=== PATIENT | male | born 1965 | race Caucasian/White ===

== ENCOUNTER 2021-01-26 07:59 | Emergency (ER) | payer SELFPAY ==
[~2021-01-26] VITALS: Ht 188 cm; Wt 108.0 kg
[2021-01-26 08:01] VITALS: BP 155/88
--- NOTE | 2021-01-26 08:26 | NUR ---
REVIEWED DC INSTRUCTIONS WITH PT, UNDERSTANDING VERBALIZED. PT LEFT AMB, GAIT STEADY
== END 2021-01-26 08:28 | disposition home or self-care (01) ==
LOC: ED 08:05
DX: L03.113 Cellulitis of right upper limb (principal); B02.9 Zoster without complications; T78.40XA Allergy, unspecified, initial encounter; X58.XXXA Exposure to other specified factors, initial encounter
CPT/HCPCS: 99283